=== PATIENT | male | born 1950 | race African-American/Black ===

== ENCOUNTER 2019-06-25 17:05 | Emergency (ER) | payer OTHER ==
[~2019-06-25] VITALS: Ht 185.4 cm; Wt 90.7 kg
[2019-06-25] MEDS ORDERED: NORCO 5-325 TA1 EAC1 PO (18:51)
[2019-06-25] MEDS ORDERED: MOBIC7.5 MG PO (18:51)
[2019-06-25 19:12] VITALS: BP 189/92
== END 2019-06-25 19:12 | disposition home or self-care (01) ==
LOC: ER 17:05
DX: S92.411A Displaced fracture of proximal phalanx of right great toe, initial encounter for closed fracture (principal); G43.909 Migraine, unspecified, not intractable, without status migrainosus; Z91.018 Allergy to other foods; W22.8XXA Striking against or struck by other objects, initial encounter; Y92.89 Other specified places as the place of occurrence of the external cause; Y93.89 Activity, other specified; Y99.8 Other external cause status